=== PATIENT | female | born 1985 | race Hispanic/Latino ===

== ENCOUNTER 2023-08-29 03:26 | Emergency (ER) | payer OTHER ==
[~2023-08-29] VITALS: Ht 149.9 cm; Wt 65.8 kg
[2023-08-29 05:06] VITALS: BP 122/56; PULSE 88; RESP 20; O2SAT 99
[2023-08-29] MEDS ORDERED: HYDROCODONE/ACETAMINOPHEN 5/325 MG TAB PO STA (05:25)
== END 2023-08-29 07:41 | disposition home or self-care (01) ==
LOC: EDH 03:26
DX: S00.83XA Contusion of other part of head, initial encounter (principal); Y08.89XA Assault by other specified means, initial encounter; Y93.89 Activity, other specified; Y92.89 Other specified places as the place of occurrence of the external cause; Y99.8 Other external cause status
CPT/HCPCS: 70450; 70486; 72125

== ENCOUNTER 2024-01-27 04:05 | Emergency (ER) | payer BC ==
[~2024-01-27] VITALS: Ht 149.9 cm; Wt 65.8 kg
[2024-01-27] MEDS: MORPHINE 4 MG SYG IVP ONE (04:39)
[2024-01-27] MEDS: ONDANSETRON 4MG INJ IVP ONE (04:39)
[2024-01-27 04:48] LABS: BASOPHILS # (AUTO) 0.04 K/uL (0.00-0.20); BASOPHILS % (AUTO) 0.3 % (0.0-5.0); EOSINOPHILS # (AUTO) 0.09 K/uL (0.00-0.70); EOSINOPHILS % (AUTO) 0.7 % (0.0-8.0); HEMATOCRIT 41.3 % (36-48); IMMATURE GRANULOCYTE ABSOLUTE 0.04 K/uL (0-1); LYMPHOCYTES # (AUTO) 2.9 K/uL (1.0-4.8); LYMPHOCYTES % (AUTO) 21.2 % (21.0-51.0); MEAN CORPUSCULAR HEMOGLOBIN 31.4 pg (27.0-33.0); MEAN CORPUSCULAR HGB CONC 34.4 g/dL (32.0-36.0); MEAN CORPUSCULAR VOLUME 91.4 fL (79-99); MONOCYTES # (AUTO) 0.9 K/uL (0.1-1.0); MONOCYTES % (AUTO) 6.2 % (3.0-13.0); NEUTROPHILS # (AUTO) 9.9 K/uL (1.8-7.7); NEUTROPHILS % (AUTO) 71.3 % (40.0-77.0); PLATELET COUNT (AUTO) 200 K/uL (130-400); RED BLOOD CELL COUNT(AUTO) 4.52 MIL/uL (4.00-5.50); RED CELL DISTRIBUTION WIDTH 12.3 % (11.0-15.5); WHITE BLOOD COUNT (AUTO) 13.8 K/uL (4.8-10.8)
[2024-01-27 05:00] LABS: CREATININE 0.6 mg/dL (0.5-1.0); POTASSIUM 3.2 mmol/L (3.5-5.1)
[2024-01-27 05:09] LABS: ALBUMIN 3.7 g/dL (3.5-5.0); BILIRUBIN,TOTAL 0.4 mg/dL (0.2-1.0); TOTAL PROTEIN, SERUM 7.3 g/dL (6.0-8.3)
[2024-01-27] MEDS: FAMOTIDINE 20MG VIAL IV ONE (05:28)
[2024-01-27] MEDS: 0.9%NACL 1000ML 1,000 ML IV ONE (05:29)
[2024-01-27] MEDS: KETOROLAC 30MG VIAL (30MG/ML) ONE (06:17)
[2024-01-27] MEDS: PANTOPRAZOLE 40 MG/VIAL ONE (06:17)
[2024-01-27] MEDS ORDERED: KETOROLAC 30MG VIAL (30MG/ML) IVP ONE (06:30)
[2024-01-27] MEDS ORDERED: PANTOPRAZOLE 40 MG/VIAL IVP ONE (06:30)
[2024-01-27] MEDS: KETOROLAC 30MG VIAL (30MG/ML) IVP ONE (06:53)
[2024-01-27] MEDS: PANTOPRAZOLE 40 MG/VIAL IVP ONE (06:54)
[2024-01-27 09:39] LABS: ADD UA MICROSCOPIC YES; APPEARANCE,URINE CLEAR (CLEAR); BILIRUBIN,URINE NEGATIVE (NEGATIVE); COLOR,URINE LIGHT-YELLOW (YELLOW); GLUCOSE, URINE (UA) NEGATIVE (NEGATIVE); KETONES,URINE 40 mg/dL (NEGATIVE); LEUKOCYTE ESTERASE ,URINE NEGATIVE Leu/uL (NEGATIVE); NITRATE,URINE NEGATIVE (NEGATIVE); OCCULT BLOOD,URINE MODERATE (NEGATIVE); PH,URINE 7.5 (5.0-8.0); PROTEIN,URINE 20 mg/dL (NEGATIVE)
[2024-01-27 09:50] LABS: BACTERIA,URINE RARE /HPF (None Seen); MUCUS,URINE RARE LPF (None Seen); RBC,URINE 26-50 /HPF (0-1); SQUAMOUS EPITHELIAL CELL,UR RARE /HPF (0-2)
[2024-01-27] MEDS ORDERED: FAMO20TA8 PO (10:12)
[2024-01-27] MEDS ORDERED: ONDA4TAB10 PO (10:13)
[2024-01-27 10:28] VITALS: BP 108/66; PULSE 84; RESP 18; O2SAT 99
== END 2024-01-27 10:29 | disposition home or self-care (01) ==
LOC: EDH 04:05
DX: K80.70 Calculus of gallbladder and bile duct without cholecystitis without obstruction (principal); R10.13 Epigastric pain
CPT/HCPCS: 99284; 96374; 96375; 76705; 96361; 80053; 84703; 83690; 85025; 81001; 36415; J3490; J7030; J2405; J2270; J1885; C9113

== ENCOUNTER 2024-02-18 08:41 | Emergency (ER) | payer BC ==
[~2024-02-18] VITALS: Ht 149.9 cm; Wt 60.8 kg
[~2024-02-18 08:41] MED LIST: FAMO20TA8 PO; ONDA-243 PO
[2024-02-18 09:26] LABS: BASOPHILS # (AUTO) 0.02 K/uL (0.00-0.20); BASOPHILS % (AUTO) 0.2 % (0.0-5.0); EOSINOPHILS % (AUTO) 2.1 % (0.0-8.0); IMMATURE GRANULOCYTE ABSOLUTE 0.04 K/uL (0-1); LYMPHOCYTES # (AUTO) 1.9 K/uL (1.0-4.8); LYMPHOCYTES % (AUTO) 19.8 % (21.0-51.0); MEAN CORPUSCULAR HEMOGLOBIN 29.8 pg (27.0-33.0); MEAN CORPUSCULAR HGB CONC 33.2 g/dL (32.0-36.0); MEAN CORPUSCULAR VOLUME 89.6 fL (79-99); MONOCYTES # (AUTO) 0.5 K/uL (0.1-1.0); NEUTROPHILS # (AUTO) 6.8 K/uL (1.8-7.7); NEUTROPHILS % (AUTO) 72.5 % (40.0-77.0); PLATELET COUNT (AUTO) 257 K/uL (130-400); RED BLOOD CELL COUNT(AUTO) 4.13 MIL/uL (4.00-5.50); RED CELL DISTRIBUTION WIDTH 12.5 % (11.0-15.5); WHITE BLOOD COUNT (AUTO) 9.4 K/uL (4.8-10.8)
[2024-02-18 09:30] LABS: APPEARANCE,URINE CLOUDY (CLEAR); BILIRUBIN,URINE NEGATIVE (NEGATIVE); COLOR,URINE YELLOW (YELLOW); GLUCOSE, URINE (UA) NEGATIVE (NEGATIVE); KETONES,URINE NEGATIVE (NEGATIVE); LEUKOCYTE ESTERASE ,URINE 75 Leu/uL (NEGATIVE); NITRATE,URINE NEGATIVE (NEGATIVE); OCCULT BLOOD,URINE LARGE (NEGATIVE); PROTEIN,URINE 70 mg/dL (NEGATIVE)
[2024-02-18 09:44] LABS: ALBUMIN 3.2 g/dL (3.5-5.0); BILIRUBIN,TOTAL 0.2 mg/dL (0.2-1.0); CREATININE 0.7 mg/dL (0.5-1.0); POTASSIUM 3.3 mmol/L (3.5-5.1); TOTAL PROTEIN, SERUM 6.7 g/dL (6.0-8.3)
[2024-02-18 09:48] LABS: HCG,QUALITATIVE URINE NEGATIVE (NEGATIVE)
[2024-02-18] MEDS: ONDANSETRON 4MG INJ IVP ONE (09:53)
[2024-02-18] MEDS: FAMOTIDINE 20MG VIAL IV ONE (09:53)
[2024-02-18] MEDS: METOCLOPRAMIDE 10 MG/2 ML VIAL IVP ONE (09:53)
[2024-02-18] MEDS: MORPHINE 4 MG SYG IVP ONE (09:54)
[2024-02-18 10:05] LABS: ADD UA MICROSCOPIC YES
[2024-02-18 10:07] LABS: BACTERIA,URINE RARE /HPF (None Seen); MUCUS,URINE MANY LPF (None Seen); RBC,URINE 26-50 /HPF (0-1); SQUAMOUS EPITHELIAL CELL,UR MANY /HPF (0-2)
[2024-02-18] MEDS: CEFTRIAXONE 1G VIAL IVPB ONE (10:42)
[2024-02-18] MEDS ORDERED: CEPH500B PO (10:44)
[2024-02-18 11:12] VITALS: BP 100/61; PULSE 60; RESP 18; O2SAT 99
== END 2024-02-18 11:35 | disposition home or self-care (01) ==
LOC: EDH 08:41
DX: N39.0 Urinary tract infection, site not specified (principal); K80.50 Calculus of bile duct without cholangitis or cholecystitis without obstruction
CPT/HCPCS: 99284; 96365; 96375; 76705; 80053; 83690; 85025; 87088; 81001; 81025; 36415; J3490; J0696; J2405; J2270; J2765

== ENCOUNTER 2024-05-18 19:07 | Emergency (ER) | payer BC ==
[~2024-05-18] VITALS: Ht 149.9 cm; Wt 68.0 kg
[~2024-05-18 19:07] MED LIST changes: +CEPH500B PO
[2024-05-18 19:45] LABS: HCG,QUALITATIVE URINE NEGATIVE (NEGATIVE)
[2024-05-18 19:48] LABS: BILIRUBIN,URINE MODERATE mg/dL (NEGATIVE); GLUCOSE, URINE (UA) 250 mg/dL (NEGATIVE); KETONES,URINE 5 mg/dL (NEGATIVE); LEUKOCYTE ESTERASE ,URINE LARGE Leu/uL (NEGATIVE); NITRATE,URINE POSITIVE (NEGATIVE); OCCULT BLOOD,URINE MODERATE (NEGATIVE); PROTEIN,URINE >=300 mg/dL (NEGATIVE); UROBILINOGEN,URINE >=8.0 mg/dL (0.2-1.0)
[2024-05-18 19:49] LABS: ADD UA MICROSCOPIC YES; APPEARANCE,URINE HAZY (CLEAR); COLOR,URINE ORANGE (YELLOW)
[2024-05-18 19:50] LABS: RAPID GROUP A STREP negative (NEGATIVE)
[2024-05-18 19:58] LABS: COVID19 (SARS ANTIGEN RAPID) PRESUMPTIVE NEGATIVE (NEGATIVE); INFLUENZA TYPE A Negative For Type A (NEGATIVE); INFLUENZA TYPE B Negative For Type B (NEGATIVE)
[2024-05-18 20:04] LABS: BASOPHILS # (AUTO) 0.03 K/uL (0.00-0.20); BASOPHILS % (AUTO) 0.2 % (0.0-5.0); EOSINOPHILS # (AUTO) 0.01 K/uL (0.00-0.70); EOSINOPHILS % (AUTO) 0.1 % (0.0-8.0); HEMATOCRIT 36.8 % (36-48); IMMATURE GRANULOCYTE ABSOLUTE 0.11 K/uL (0-1); LYMPHOCYTES # (AUTO) 1.2 K/uL (1.0-4.8); LYMPHOCYTES % (AUTO) 6.6 % (21.0-51.0); MEAN CORPUSCULAR HEMOGLOBIN 30.8 pg (27.0-33.0); MEAN CORPUSCULAR HGB CONC 34.8 g/dL (32.0-36.0); MEAN CORPUSCULAR VOLUME 88.7 fL (79-99); MONOCYTES # (AUTO) 1.7 K/uL (0.1-1.0); MONOCYTES % (AUTO) 9.4 % (3.0-13.0); NEUTROPHILS % (AUTO) 83.1 % (40.0-77.0); PLATELET COUNT (AUTO) 218 K/uL (130-400); RED BLOOD CELL COUNT(AUTO) 4.15 MIL/uL (4.00-5.50); RED CELL DISTRIBUTION WIDTH 12.5 % (11.0-15.5)
[2024-05-18 20:10] LABS: SQUAMOUS EPITHELIAL CELL,UR Few /HPF (0-2)
[2024-05-18 20:11] LABS: BACTERIA,URINE Few /HPF (None Seen); WBC,URINE >100 /HPF (0-1)
[2024-05-18] MEDS: IBUPROFEN 600 MG TABLET PO ONE (20:14)
[2024-05-18] MEDS: LACTATED RINGERS 1000ML 1,000 ML IV ONE (20:14)
[2024-05-18] MEDS: CEFTRIAXONE 2GM VIAL IVPB ONE (20:14)
[2024-05-18 20:16] LABS: CREATININE 0.8 mg/dL (0.5-1.0); POTASSIUM 3.5 mmol/L (3.5-5.1)
[2024-05-18 20:20] LABS: ALBUMIN 3.3 g/dL (3.5-5.0); BILIRUBIN,TOTAL 0.8 mg/dL (0.2-1.0); TOTAL PROTEIN, SERUM 7.5 g/dL (6.0-8.3)
[2024-05-18 20:31] LABS: BAND NEUTROPHILS % (MANUAL) 15 % (0-2); EOSINOPHILS % (MANUAL) 1 % (1-6); LYMPHOCYTES % (MANUAL) 6 % (22-44); MAN.DIFF COMMENT-IMPRESSION MANUAL DIFFERENTIAL; MONOCYTES % (MANUAL) 12 % (2-9); PLATELET MORPHOLOGY COMMENT ADEQUATE; SEGMENTED NEUTROPHILS % 66 % (40-70); TOTAL CELLS COUNTED 100; WBC MORPHOLOGY CONSISTENT W/DIFF
[2024-05-18 20:51] VITALS: TEMP 99.1
[2024-05-18] MEDS ORDERED: PHEN-776 PO (21:08)
[2024-05-18] MEDS ORDERED: AMOX1TAB16 PO (21:08)
[2024-05-18 21:13] VITALS: BP 93/60; PULSE 105; RESP 22; O2SAT 98
[2024-05-18] MEDS ORDERED: AMOX/CLAV 875/125MG TAB PO ONE (21:30)
== END 2024-05-18 21:25 | disposition home or self-care (01) ==
LOC: EDH 19:07
DX: N39.0 Urinary tract infection, site not specified (principal); R65.10 Systemic inflammatory response syndrome (SIRS) of non-infectious origin without acute organ dysfunction; R73.9 Hyperglycemia, unspecified; Z20.822 Contact with and (suspected) exposure to COVID-19; Z79.899 Other long term (current) drug therapy
CPT/HCPCS: 99284; 96374; 87426; 82550; 80053; 85025; 87040; 87086 ×2; 87186; 87880; 87804 ×2; 83605; 81001; 81025; 36415; J7120; J0696

== ENCOUNTER 2024-09-15 11:09 | Emergency (ER) | payer BC ==
[~2024-09-15] VITALS: Ht 149.9 cm; Wt 66.7 kg
[~2024-09-15 11:09] MED LIST changes: +AMOX1TAB16 PO; +PHEN-776 PO
--- NOTE | 2024-09-15 11:51 | HMCIMG ---
US OB <14 WEEKS REASON: VAGINAL BLEEDING COMPARISON: None TECHNIQUE: Transvaginal pelvic sonogram was performed. FINDINGS: There is an intrauterine gestational sac. There is a pole corresponding with an 11 week 6 day IUP with heart rate 153 BPM. Both ovaries appear normal. There are no adnexal masses. There is normal-appearing blood flow. There is no free fluid in the cul-de-sac. IMPRESSION: 1. Intrauterine gestation 11 weeks 6 days by crown-rump length, heart rate 153 BPM.
[2024-09-15 12:09] LABS: BASOPHILS # (AUTO) 0.02 K/uL (0.00-0.20); BASOPHILS % (AUTO) 0.2 % (0.0-5.0); EOSINOPHILS # (AUTO) 0.12 K/uL (0.00-0.70); EOSINOPHILS % (AUTO) 1.4 % (0.0-8.0); HEMATOCRIT 35.5 % (36-48); IMMATURE GRANULOCYTE ABSOLUTE 0.08 K/uL (0-1); LYMPHOCYTES # (AUTO) 2.4 K/uL (1.0-4.8); LYMPHOCYTES % (AUTO) 26.9 % (21.0-51.0); MEAN CORPUSCULAR HGB CONC 34.6 g/dL (32.0-36.0); MEAN CORPUSCULAR VOLUME 89.4 fL (79-99); MONOCYTES # (AUTO) 0.7 K/uL (0.1-1.0); MONOCYTES % (AUTO) 7.4 % (3.0-13.0); NEUTROPHILS # (AUTO) 5.6 K/uL (1.8-7.7); NEUTROPHILS % (AUTO) 63.2 % (40.0-77.0); PLATELET COUNT (AUTO) 192 K/uL (130-400); RED BLOOD CELL COUNT(AUTO) 3.97 MIL/uL (4.00-5.50); RED CELL DISTRIBUTION WIDTH 12.4 % (11.0-15.5); WHITE BLOOD COUNT (AUTO) 8.9 K/uL (4.8-10.8)
[2024-09-15] MEDS: acetaMINOPHEN 500 MG TABLET PO ONE (12:09)
[2024-09-15 12:25] LABS: CREATININE 0.5 mg/dL (0.5-1.0); POTASSIUM 3.5 mmol/L (3.5-5.1)
[2024-09-15 12:59] LABS: APPEARANCE,URINE CLEAR (CLEAR); BILIRUBIN,URINE NEGATIVE (NEGATIVE); COLOR,URINE LIGHT-YELLOW (YELLOW); GLUCOSE, URINE (UA) NEGATIVE (NEGATIVE); KETONES,URINE NEGATIVE (NEGATIVE); LEUKOCYTE ESTERASE ,URINE NEGATIVE Leu/uL (NEGATIVE); NITRATE,URINE NEGATIVE (NEGATIVE); OCCULT BLOOD,URINE MODERATE (NEGATIVE); PH,URINE 6.5 (5.0-8.0); PROTEIN,URINE NEGATIVE (NEGATIVE); UROBILINOGEN,URINE 0.2 mg/dL (0.2-1.0)
[2024-09-15 13:01] LABS: ADD UA MICROSCOPIC YES
[2024-09-15 13:07] LABS: SQUAMOUS EPITHELIAL CELL,UR RARE /HPF (0-2); WBC,URINE 0-1 /HPF (0-1)
--- NOTE | 2024-09-15 13:12 | ERN ---
General Chief Complaint: Abdominal Pain in Stated Complaint: 11 1/2 WEEKS PREG, CRAMPING SINCE LAST NIGHT Time Seen by MD: 11:17 Time Seen by Midlevel: 11:17 Source: patient History of Present Illness Initial Comments Patient is a 38-year-old female with no significant past medical history presenting to the emergency department with lower abdominal cramping that started this morning. Patient reports being approximately 11 weeks . She has not seen her OBGYN but is scheduled to see her in a couple of weeks. Denies any vaginal bleeding, dysuria, hematuria, fever, flank pain or any other symptoms at this time. Allergies: Coded Allergies: No Known Drug Allergies (Unverified Allergy, Unknown, 08/29/23) Home Meds Active Scripts Phenazopyridine HCl (Pyridium) 200 Mg Tablet, 200 MG PO TID for 5 Days, #15 TAB Prov:AILIN RAMEY NP 05/18/24 Amoxicillin/Potassium Clav (Amox Tr-K Clv 875-125 mg Tab) 875 Mg-125 Mg Tablet, 1 EACH PO BID for 7 Days, #14 TAB 0 Refills Prov:AILIN RAMEY NP 05/18/24 Cephalexin Monohydrate (Keflex) 500 Mg Cap, 500 MG PO TID for 7 Days, #21 CAP Prov:VILMA SOLIS [employer] 02/18/24 Ondansetron (Ondansetron Odt) 4 Mg Tab.rapdis, 4 MG PO Q6HPRN PRN for nausea, #10 TAB 0 Refills Prov:BRAULIO WHITE MD 01/27/24 Famotidine (Famotidine) 20 Mg Tablet, 20 MG PO DAILY for 10 Days, #10 TAB Prov:BRAULIO WHITE MD 01/27/24 Past Medical History Past Medical History: No Pertinent History Past Surgical History: None Family History Family History: Negative Social History Social History: Negative, Lives with family Female( History) History: Not Applicable LMP: Jun 25, 2024 : 5 Para: 3 Aborts: 1 ROS Dictation CONSTITUTIONAL: Negative except for HPI HEAD/FACE: Negative except for HPI EENT: Negative except for HPI RESPIRATORY: Negative except for HPI GASTROINTESTINAL/ABDOMINAL: Negative except for HPI GENITOURINARY: Negative except for HPI MUSCULOSKELETAL: Negative except for HPI INTEGUMENTARY: Negative except for HPI NEUROLOGICAL/PSYCH: Negative except for HPI HEMATOLOGIC/LYMPHATIC: Negative except for HPI All Systems Negative, Except as noted above. 13 point review of systems assessed and all negative except for above. Physical Exam Physical Exam Dictation Vital Signs reviewed General Appearance: Alert, oriented x 3, no acute distress, well developed, nourished. Head and Face: non-traumatic. Eyes: PERRL, pink conjunctivas, eyelid no trauma, anterior chamber with arcus senilis. Ears: Pinnas intact and no signs of trauma or erythema ear canals clear and no discharge TM no erythema Nose: No discharge, no bleeding. Oropharynx: Mouth normal, tongue pink, pharynx clear,no erythema, tonsils no exudates, no abscesses noted, mucous membrane moist Neck: Supple, non-tender, no thyromegaly, no masses, no JVD, no bruits Breast:Deferred Chest:No tenderness, no crepitus, no paradoxical movement, no retractions Lungs:Clear, well-ventilated, symmetric, no rales, no wheezing, no rhonchi, no stridor, good breath sounds bilaterally Heart: Regular rate, regular rhythm, no murmur, no gallops Vascular: no peripheral edema, Abdomen: Soft, positive bowel sounds, nondistended, no guarding, nontender, no rebound, no masses no hepatomegaly, no splenomegaly, no Morel's sign, no hernias. Rectal: Deferred Genital: Deferred Neurological: Normal speech, motor function intact, sensory function intact Musculoskeletal: Neck nontender, full range of motion, back nontender, full range of motion, Extremities: nontender, full range of motion Skin: Color pink, dry, no turgor, no rash, no lacerations, no abrasions, no contusions. Lymphatic: Deferred Results Laboratory and Microbiology Lab and Micro Result Laboratory Tests Test 09/15/24 11:55 09/15/24 12:28 White Blood Count 8.9 K/uL (4.8-10.8) Red Blood Count 3.97 MIL/uL (4.00-5.50) L Hemoglobin 12.3 g/dL (12.0-16.0) Hematocrit 35.5 % (36-48) L Mean Corpuscular Volume 89.4 fL (79-99) Mean Corpuscular Hemoglobin 31.0 pg (27.0-33.0) Mean Corpuscular Hemoglobin Concent 34.6 g/dL (32.0-36.0) Red Cell Distribution Width 12.4 % (11.0-15.5) Platelet Count 192 K/uL (130-400) Mean Platelet Volume 12.1 fL (7.5-10.5) H Immature Granulocyte % (Auto) 0.9 % (0-1) Neutrophils (%) (Auto) 63.2 % (40.0-77.0) Lymphocytes (%) (Auto) 26.9 % (21.0-51.0) Monocytes (%) (Auto) 7.4 % (3.0-13.0) Eosinophils (%) (Auto) 1.4 % (0.0-8.0) Basophils (%) (Auto) 0.2 % (0.0-5.0) Neutrophils # (Auto) 5.6 K/uL (1.8-7.7) Lymphocytes # (Auto) 2.4 K/uL (1.0-4.8) Monocytes # (Auto) 0.7 K/uL (0.1-1.0) Eosinophils # (Auto) 0.12 K/uL (0.00-0.70) Basophils # (Auto) 0.02 K/uL (0.00-0.20) Absolute Immature Granulocyte (auto 0.08 K/uL (0-1) Nucleated Red Blood Cells 0.0 % (0.0-0.19) Sodium Level 132 mmol/L (136-145) L Potassium Level 3.5 mmol/L (3.5-5.1) Chloride Level 100 mmol/L (101-111) L Carbon Dioxide Level 27 mmol/L (21-32) Blood Urea Nitrogen 9 mg/dL (7-18) Creatinine 0.5 mg/dL (0.5-1.0) Glomerular Filtration Rate Calc 124 mL/min (>90) Random Glucose 87 mg/dL (70-105) Total Calcium 9.0 mg/dL (8.5-10.1) Human Chorionic Gonadotropin, Quant 10520 mIU/mL (0-5) H Serum Test, Qualitative POSITIVE (NEGATIVE) H Urine Color LIGHT-YELLOW (YELLOW) Urine Appearance CLEAR (CLEAR) Urine pH 6.5 (5.0-8.0) Urine Specific Korbel 1.010 (1.001-1.031) Urine Protein NEGATIVE mg/dL (NEGATIVE) Urine Glucose (UA) NEGATIVE mg/dL (NEGATIVE) Urine Ketones NEGATIVE mg/dL (NEGATIVE) Urine Occult Blood MODERATE (NEGATIVE) H Urine Nitrate NEGATIVE (NEGATIVE) Urine Bilirubin NEGATIVE mg/dL (NEGATIVE) Urine Urobilinogen 0.2 mg/dL (0.2-1.0) Urine Leukocyte Esterase NEGATIVE Yue/uL Urine RBC 6-10 /HPF (0-1) H Urine WBC 0-1 /HPF (0-1) Urine Squamous Epithelial Cells RARE /HPF (0-2) Urine Bacteria None /HPF (None Seen) Labs Reviewed?: Yes MDM MDM: Patient is a 38-year-old female with no significant past medical history presenting to the emergency department with lower abdominal cramping that started this morning. Patient reports being approximately 11 weeks . She has not seen her OBGYN but is scheduled to see her in a couple of weeks. Denies any vaginal bleeding, dysuria, hematuria, fever, flank pain or any other symptoms at this time. On physical examination patient is in no acute distress. There is no CVA tenderness. Patient is afebrile and nontoxic appearing. Her CBC does not show any leukocytosis. Her chemistries are unremarkable. Her hCG quant is within normal ranges. Her pelvic ultrasound reveals a single live intrauterine gestation with positive heart tones. Her urinalysis does not show any evidence of infection. No need for antibiotics at this time. She was observed in the emergency department for over 2 hours and has remained stable and asymptomatic. No episodes of vaginal bleeding while in the ER. Patient will be discharged home with close outpatient follow up with your OBGYN. Differential diagnosis: 1st trimester , miscarriage, spontaneous , urinary tract infection There are no social concerns with this patient. Prescription drug management Prescriptions will include: None Medical management and examination interpretation discussions were had by me with other qualified healthcare professionals as indicated for the patient's care. ED Course Orders Procedure Category Date Status Time Cbc With Differential LAB 09/15/24 Complete 11:12 Testing, LAB 09/15/24 Complete Serum Hcg 11:12 Abo/Rh BBK 09/15/24 Complete 11:12 Us Ob <14 Weeks US 09/15/24 Resulted 11:12 Basic Metabolic Panel LAB 09/15/24 Complete 11:12 Acetaminophen 500mg PHA 09/15/24 Complete Tab (Tylenol 500mg T 11:30 Hcg,Quantitative LAB 09/15/24 Complete 11:55 Urinalysis Profile LAB 09/15/24 Complete 12:17 Current Medications Medications (Trade) Dose Ordered Sig/Reji Route PRN Reason Start Time Stop Time Status Last Admin Dose Admin Acetaminophen (TYLenol 500MG TAB) 1,000 mg ONCE ONCE PO 09/15/24 11:30 09/15/24 11:31 DC 09/15/24 12:09 Vital Signs Date Time Temp Pulse Resp B/P (MAP) Pulse Ox O2 Delivery O2 Flow Rate FiO2 09/15/24 13:26 76 18 126/73 99 Room Air* 0 21 09/15/24 11:31 98 Room Air [place] [id number] [address] IMAGING REPORT Signed PATIENT: VALE MAE MR#: [id number] : 1985 SEX: F AGE: 38 LOCATION: [facility] ORDER 1114 STATUS: REG ER REPORT#: [id number] SERVICE 1112 REASON: VAGINAL BLEEDING ORDERING PHYSICIAN: SAMIA RODNEY DO PROCEDURE: OB <14 - US OB <14 WEEKS US OB <14 WEEKS REASON: VAGINAL BLEEDING COMPARISON: None TECHNIQUE: Transvaginal pelvic sonogram was performed. FINDINGS: There is an intrauterine gestational sac. There is a pole corresponding with an 11 week 6 day IUP with heart rate 153 BPM. Both ovaries appear normal. There are no adnexal masses. There is normal-appearing blood flow. There is no free fluid in the cul-de-sac. IMPRESSION: 1. Intrauterine gestation 11 weeks 6 days by crown-rump length, heart rate 153 BPM. DICTATED BY: FEDERICO ZAMORA MD DATE: 09/15/24 1147 ELECTRONICALLY SIGNED BY: FEDERICO ZAMORA MD DATE: 09/15/24 1151 DX & DISP Disposition: Discharge Departure Impression: Primary Impression: First trimester Condition: Stable Additional Instructions: Your blood work today [place] [id number]. Your pelvic ultrasound reveals a single live intrauterine gestation measuring approximately 11 weeks and six days. There is a heart rate of 153 beats per minute. Your urinalysis does not show any evidence of infection. There is no need for antibiotics at this time. Please follow up with your OBGYN as scheduled. Return to the ER for any new or worsening symptoms. Referrals: LOBO LEON MD (PCP) Time of Disposition: 13:10 I have reviewed the case, and I agree with, Diagnosis and Plan I performed a substantive portion of the visit. I have reviewed and personally made and approve the management plan that is documented in the notes by myself with EDITH/resident. I acknowledged full responsibility for the patient's management plan. THOMAS CLARK Sep 15, 2024 13:12 SAMIA RODNEY DO Sep 17, 2024 12:06
[2024-09-15 13:26] VITALS: BP 126/73; PULSE 76; RESP 18; O2SAT 99
== END 2024-09-15 13:28 | disposition home or self-care (01) ==
LOC: EDH 11:09
DX: O26.891 Other specified pregnancy related conditions, first trimester (principal); R10.30 Lower abdominal pain, unspecified; R10.2 Pelvic and perineal pain; Z3A.11 11 weeks gestation of pregnancy; Z79.899 Other long term (current) drug therapy
CPT/HCPCS: 36415; 76801; 80048; 81001; 84702; 84703; 85025; 86900; 86901; 99284